=== PATIENT | female | born 1985 | race Caucasian/White ===

== ENCOUNTER 2017-11-10 15:47 | Emergency (ER) | payer OTHER ==
[2017-11-10 16:54] LABS: Absolute Lymphocytes (CBC) 2.4 K/uL (0.7-4.9); Absolute Monocytes 0.4 K/uL (0.1-1.3); Absolute Neutrophil 4.1 K/uL (1.8-8.0); Basophils % 1.1 % (0-1.3); Eosinophils % 4.2 % (0-4.4); Hematocrit 41.2 % (36.0-45.0); Lymphocytes % 33.4 % (15.3-44.8); MCH 29.9 pg (27.0-35.0); MCV 89.5 fL (80-100); Monocytes % 5.4 % (3.3-12.3)
[2017-11-10 17:44] LABS: Albumin 3.5 g/dL (3.4-5.0); Bilirubin Direct 0.1 mg/dL (0-0.2); Bilirubin Total 0.3 mg/dL (0.2-1.0); Magnesium 2.2 mg/dL (1.8-2.4); Potassium 4.3 mmol/L (3.5-5.1); Protein, Total 6.5 g/dL (6.4-8.2)
--- NOTE | 2017-11-10 17:49 | ER ---
Nurse's Notes [facility] Name: Shannan Chávez Age: 32 yrs Sex: Female : 1985 Arrival Date: 11/10/2017 Time: 15:52 Bed 30 Private MD: None, None Diagnosis: Pain in left leg;Pain in right leg Presentation: 11/10 15:54 Presenting complaint: Patient states: leeanne leg pain that began 1 week ago. Pt describes aa5 pain as "cramps and tight". Transition of care: patient was not received from another setting of care. Onset of symptoms was October 2017. Risk Assessment: Do you want to hurt yourself or someone else? Patient reports no desire to harm self or others. Initial Sepsis Screen: Does the patient meet any 2 criteria? No. Patient's initial sepsis screen is negative. Does the patient have a suspected source of infection? No. Patient's initial sepsis screen is negative. Care prior to arrival: None. 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 - Social history:: Smoking status: Patient uses tobacco products, smokes one-half pack cigarettes per day. - Ebola Screening: : No symptoms or risks identified at this time. Screenin:35 Abuse screen: Denies threats or abuse. Abuse screen: Denies injuries from another. mg2 Nutritional screening: No deficits noted. Tuberculosis screening: No symptoms or risk factors identified. Fall Risk None identified. Assessment: 16:33 General: Appears in no apparent distress. distressed, Behavior is calm, cooperative. mg2 Pain: Complains of pain in both legs Pain does not radiate. Pain currently is 4 out of 10 on a pain scale. Quality of pain is described as aching, crampy, Pain began gradually, 1 week ago Is intermittent. Neuro: Level of Consciousness is awake, alert, obeys commands, Oriented to person, place, time, situation. Cardiovascular: Capillary refill < 3 seconds Patient's skin is warm and dry. Respiratory: Airway is patent Respiratory effort is even, unlabored, Respiratory pattern is regular, symmetrical. GI: No signs and/or symptoms were reported involving the gastrointestinal system. : No signs and/or symptoms were reported regarding the genitourinary system. EENT: No signs and/or symptoms were reported regarding the EENT system. Derm: Skin is intact, Skin is pink, warm \\T\\ dry. normal. Musculoskeletal: Circulation, motion, and sensation intact. Reports pain in right leg and left leg. 18:06 Reassessment: Patient appears in no apparent distress at this time. Patient and/or mg2 family updated on plan of care and expected duration. Pain level reassessed. Patient is alert, oriented x 3, equal unlabored respirations, skin warm/dry/pink. Vital Signs: 15:56 BP 115 / 74; Pulse 89; Resp 16 S; Temp 97.6(TE); Pulse Ox 98% on R/A; Weight 68.04 kg aa5 (R); Height 5 ft. 10 in. (177.80 cm) (R); Pain 5/10; 16:35 BP 118 / 80; Pulse 79; Resp 18; Pulse Ox 100% on R/A; Pain 4/10; mg2 18:07 BP 120 / 78; Pulse 78; Resp 18; Pulse Ox 100% on R/A; Pain 0/10; mg2 15:56 Body Mass Index 21.52 (68.04 kg, 177.80 cm) aa5 ED Course: 15:52 Patient arrived in ED. mr 15:53 None, None is Private Physician. mr 15:55 Triage completed. aa5 15:55 Arm band placed on. aa5 16:16 Mario Johnston PA is PHCP. jr8 16:16 Frankie Borjas MD is Attending Physician. jr8 16:28 Eugene Lu, ETELVINA is Primary Nurse. mg2 16:35 Patient has correct armband on for positive identification. Pulse ox on. NIBP on. Door mg2 closed. 17:12 No provider procedures requiring assistance completed. Inserted saline lock: 22 gauge mg2 in left upper arm, using aseptic technique. Blood collected. 17:12 Lab(s) recollected, by me, sent to lab. mg2 18:06 IV discontinued, intact, bleeding controlled, No redness/swelling at site. Pressure mg2 dressing applied. Administered Medications: No medications were administered Outcome: 17:49 Discharge ordered by MD. tavera 18:07 Discharged to home ambulatory, with family. mg2 18:07 Condition: stable 18:07 Discharge instructions given to patient, family, Instructed on discharge instructions, follow up and referral plans. medication usage, Demonstrated understanding of instructions, follow-up care, medications, Prescriptions given X 1. 18:07 Patient left the ED. mg2 Signatures: Kelsie Joaquin mr Shana Bartholomew, RN RN aa5 Mario Johnston PA PA jr8 Eugene uL RN RN mg2
--- NOTE | 2017-11-10 17:49 | EDPHYS ---
Physician Documentation [facility] Name: Shannan Chávez Age: 32 yrs Sex: Female : 1985 Arrival Date: 11/10/2017 Time: 15:52 Bed 30 Private MD: None, None ED Physician Frankie Borjas HPI: 11/10 16:43 This 32 yrs old Female presents to ER via Ambulatory with complaints of Leg jr8 Pain. 16:43 Patient stated that she has had bilateral leg pain for the past few days. Denies back jr8 pain or injury to back or legs. Stated that the pain is cramping in nature. On no medications currently. Denies fevers, exertion, or recent travel . Severity of symptoms: At their worst the symptoms were mild in the emergency department the symptoms are unchanged. The patient has not experienced similar symptoms in the past. The patient has not recently seen a physician. 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 - Social history:: Smoking status: Patient uses tobacco products, smokes one-half pack cigarettes per day. - Ebola Screening: : No symptoms or risks identified at this time. ROS: 16:43 Eyes: Negative for injury, pain, redness, and discharge, ENT: Negative for injury, jr8 pain, and discharge, Neck: Negative for injury, pain, and swelling, Cardiovascular: Negative for chest pain, palpitations, and edema, Respiratory: Negative for shortness of breath, cough, wheezing, and pleuritic chest pain, Abdomen/GI: Negative for abdominal pain, nausea, vomiting, diarrhea, and constipation, Back: Negative for injury and pain, Skin: Negative for injury, rash, and discoloration, Neuro: Negative for headache, weakness, numbness, tingling, and seizure. 16:43 MS/extremity: Positive for pain, of the right leg and left leg. Exam: 16:43 Eyes: Pupils equal round and reactive to light, extra-ocular motions intact. Lids and jr8 lashes normal. Conjunctiva and sclera are non-icteric and not injected. Cornea within normal limits. Periorbital areas with no swelling, redness, or edema. ENT: Nares patent. No nasal discharge, no septal abnormalities noted. Tympanic membranes are normal and external auditory canals are clear. Oropharynx with no redness, swelling, or masses, exudates, or evidence of obstruction, uvula midline. Mucous membranes moist. Neck: Trachea midline, no thyromegaly or masses palpated, and no cervical lymphadenopathy. Supple, full range of motion without nuchal rigidity, or vertebral point tenderness. No Meningismus. Cardiovascular: Regular rate and rhythm with a normal S1 and S2. No gallops, murmurs, or rubs. Normal PMI, no JVD. No pulse deficits. Respiratory: Lungs have equal breath sounds bilaterally, clear to auscultation and percussion. No rales, rhonchi or wheezes noted. No increased work of breathing, no retractions or nasal flaring. Abdomen/GI: Soft, non-tender, with normal bowel sounds. No distension or tympany. No guarding or rebound. No evidence of tenderness throughout. Back: No spinal tenderness. No costovertebral tenderness. Full range of motion. Skin: Warm, dry with normal turgor. Normal color with no rashes, no lesions, and no evidence of cellulitis. MS/ Extremity: Pulses equal, no cyanosis. Neurovascular intact. Full, normal range of motion. Equal in circumference. No erythema Neuro: Awake and alert, GCS 15, oriented to person, place, time, and situation. Cranial nerves II-XII grossly intact. Motor strength 5/5 in all extremities. Sensory grossly intact. Cerebellar exam normal. Normal gait. Vital Signs: 15:56 BP 115 / 74; Pulse 89; Resp 16 S; Temp 97.6(TE); Pulse Ox 98% on R/A; Weight 68.04 kg aa5 (R); Height 5 ft. 10 in. (177.80 cm) (R); Pain 5/10; 16:35 BP 118 / 80; Pulse 79; Resp 18; Pulse Ox 100% on R/A; Pain 4/10; mg2 18:07 BP 120 / 78; Pulse 78; Resp 18; Pulse Ox 100% on R/A; Pain 0/10; mg2 15:56 Body Mass Index 21.52 (68.04 kg, 177.80 cm) aa5 MDM: 16:17 Patient medically screened. jr8 17:46 Differential Diagnosis Electrolyte disturbance, Rhabdomyolysis, medication reaction, jr8 radiculopathy, DVT, arterial insufficiency, RLS. Data reviewed: vital signs, nurses notes, lab test result(s), and as a result, I will discharge patient. Data interpreted: Pulse oximetry: on room air is 100 %. Interpretation: normal. Counseling: I had a detailed discussion with the patient and/or guardian regarding: the historical points, exam findings, and any diagnostic results supporting the discharge/admit diagnosis, lab results, the need for outpatient follow up, a family practitioner, to return to the emergency department if symptoms worsen or persist or if there are any questions or concerns that arise at home. 11/10 16:34 Order name: CBC with Diff; Complete Time: 17:01 [facility] 11/10 16:34 Order name: Basic Metabolic Panel; Complete Time: 17:46 [facility] 11/10 16:34 Order name: LFT's; Complete Time: 17:46 [facility] 11/10 16:34 Order name: CPK; Complete Time: 17:46 [facility] 11/10 16:34 Order name: IV; Complete Time: 17:14 [facility] 11/10 16:34 Order name: Magnesium; Complete Time: 17:46 [facility] 11/10 17:08 Order name: Labs - recollect needed; Complete Time: 17:14 bd Administered Medications: No medications were administered Disposition: 11/11 12:11 Co-signature as Attending Physician, Frankie Borjas MD I agree with the assessment and mulugeta plan of care. Disposition: 11/10/17 17:49 Discharged to Home. Impression: Pain in right leg, Pain in left leg. - Condition is Stable. - Discharge Instructions: Musculoskeletal Pain. - Prescriptions for Valium 5 mg Oral Tablet - take 1 tablet by ORAL route At bedtime As needed; 12 tablet. - Medication Reconciliation Form, Thank You Letter, Antibiotic Education, Prescription Opioid Use form. - Follow up: Private Physician; When: 2 - 3 days; Reason: Recheck today's complaints, Continuance of care, Re-evaluation by your physician. - Problem is new. - Symptoms have improved. Signatures: Dispatcher [employer] EDMS Felicia Cruz Corey, MD MD cha Calderon, Audri, RN RN aa5 Mario Johnston PA PA jr8 Eugene Lu, RN RN mg2 Corrections: (The following items were deleted from the chart) 11/10 18:07 17:49 11/10/2017 17:49 Discharged to Home. Impression: Pain in right legPain in left mg2 leg. Condition is Stable. Forms are Medication Reconciliation Form, Thank You Letter, Antibiotic Education, Prescription Opioid Use. Follow up: Private Physician; When: 2 - 3 days; Reason: Recheck today's complaints, Continuance of care, Re-evaluation by your physician. Problem is new. Symptoms have improved. jr8
== END 2017-11-10 18:07 | disposition home or self-care (01) ==
LOC: ER 15:47
DX: M79.604 Pain in right leg (principal); F17.210 Nicotine dependence, cigarettes, uncomplicated
CPT/HCPCS: 36415; 80048; 80076; 82550; 83735; 85025; 99284